=== PATIENT | female | born 2000 | race Caucasian/White ===

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

== ENCOUNTER 2019-01-02 05:43 | Inpatient (IN) ==
[2019-01-02] MEDS ORDERED: PENICILLIN G POTASSIUM 5 MILLIONUNT in DEXTROSE 5 % IN WATER 100 ML IV ONE ×2 (05:58)
[2019-01-02] MEDS ORDERED: OXYTOCIN/DEXTROSE 5%-WATER 30 UNITS/500 ML BAG IV ONE (05:58)
[2019-01-02] MEDS ORDERED: ONDANSETRON 4 MG TAB.RAPDIS PO PRN (05:58)
[2019-01-02] MEDS ORDERED: DEXTROSE 5%-LACTATED RINGERS 1,000 ML IV PRN (05:58)
[2019-01-02] MEDS ORDERED: RINGER'S SOLUTION,LACTATED 1,000 ML IV ONE (05:58)
[2019-01-02 06:52] LABS: Cocaine Ur Negative (NEGATIVE); Urine Barbiturate Negative (NEGATIVE); Urine Benzodiazepines Negative (NEGATIVE); Urine Opiates Negative (NEGATIVE); Urine PCP Negative (NEGATIVE); Urine THC Negative (NEGATIVE)
[2019-01-02 07:46] VITALS: BP 121/73
[2019-01-02] MEDS ORDERED: PENICILLIN G POTASSIUM 2.5 MILLIONUNT in DEXTROSE 5 % IN WATER 100 ML IV SCH ×2 (09:58)
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
== END 2019-01-02 10:20 | disposition home or self-care (01) | DRG 832 ==
LOC: OB 05:43
PROVIDERS: ADMIT Obstetrics & Gynecology; ATTEND Obstetrics & Gynecology
CPT/HCPCS: 59025; 80307

== ENCOUNTER 2019-01-02 18:07 | Inpatient (IN) ==
[2019-01-02] MEDS ORDERED: RINGER'S SOLUTION,LACTATED 1,000 ML IV PRN (18:20)
[2019-01-02] MEDS ORDERED: RINGER'S SOLUTION,LACTATED 1,000 ML IV ONE (18:20)
[2019-01-02] MEDS ORDERED: OXYTOCIN/DEXTROSE 5%-WATER 30 UNITS/500 ML BAG IV ONE (18:20)
[2019-01-02] MEDS ORDERED: ONDANSETRON 4 MG TAB.RAPDIS PO PRN (18:20)
[2019-01-02] MEDS ORDERED: PENICILLIN G POTASSIUM 5 MILLIONUNT in DEXTROSE 5 % IN WATER 100 ML IV ONE ×2 (18:30)
[2019-01-02] MEDS ORDERED: NALOXONE HCL 1 MG/1 ML SYRG IV PRN (19:16)
[2019-01-02] MEDS ORDERED: ONDANSETRON HCL/PF 2 MG/ML VIAL IV PRN (19:16)
[2019-01-02] MEDS ORDERED: LIDOCAINE HCL/EPINEPHRINE 20 ML VIAL IJ ONE (19:17)
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
[2019-01-02] MEDS ORDERED: BUPIVACAINE HCL/PF 30 ML VIAL EP SCH (19:30)
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
--- NOTE | 2019-01-02 19:45 | ANES ---
Anesthesia Procedure Note Procedure Note: ANESTHESIA PROCEDURE NOTE Date of Procedure: 01/02/2019. Time of procedure: 1924. Performed by: Flo Ramirez CRNA Textile Finisher: None. Preprocedure diagnosis: Active labor. Post procedure diagnosis: Same. Procedure: Insertion of labor epidural. Indications: The patient is a 18 -year-old female in active labor requesting labor epidural for pain management. Findings: See below. Details of the procedure: The patient was placed in a sitting position. DuraPrep as well as Betadine swabs X3 was applied to the patient's back. Patient was then draped in a sterile fashion. Lidocaine 1% was infiltrated to the skin and subcutaneous tissues at the level of the L3-4 interspace. The epidural space was identified using a 18-gauge Tuohy needle with [id number] technique. Epidural catheter was inserted to a depth of 12 centimeters at skin. Negative test dose was elicited using 3 mL of 1.5% preservative-free lidocaine plus epinephrine 1 200,000. The epidural catheter was then taped and secured in place. Fluids: N/A. Specimen: N/A. Post procedure condition: The patient tolerated the procedure well. No complications were noted. Thank you for this consultation. Flo Ramirez CRNA
--- NOTE | 2019-01-02 19:46 | ANES ---
Post Anesthesia Assessment - Vital Signs Vitals: Last Vital Signs Temp 36.5 C 01/02/19 19:27 Pulse 93 01/02/19 19:41 Resp 18 01/02/19 19:41 BP 91/52 01/02/19 19:41 Pulse Ox 97 01/02/19 19:41 Airway Patency: Normal - Mental Status Level Of Consciousness: Awake - N/V Assessment Nausea/Vomiting Presence: None Dehydration:: No
[2019-01-02] MEDS ORDERED: BUPIVACAINE HCL/0.9 % NACL/PF 250 ML EP PRN (20:00)
[2019-01-02] MEDS ORDERED: PENICILLIN G POTASSIUM 2.5 MILLIONUNT in DEXTROSE 5 % IN WATER 100 ML IV SCH ×2 (22:30)
--- NOTE | 2019-01-03 00:05 | OR ---
Operative Report - Dictated Report Narrative: Spontaneous vaginal delivery of vigorously crying viable male at 2350 on 01/02/2019 with Apgars 9 and 10, weighing 3052 g and SERGEY position. Cord clamping delayed approximately 1 minute Placenta delivered complete, intact, with three vessel cord Estimated blood loss: less than 50 ml Anesthesia: epidural Lacerations: None History for MU History for MU Definition: * The number of deliveries resulting in a live the patient experienced prior to current hospitalization * The previous delivery of live twins or any live multiple gestation is considered one live event. *If primagravida or nulliparous is documented select zero for the number of previous live births. Live Events: Live Events: 1
[2019-01-03] MEDS ORDERED: BISACODYL 10 MG SUPP.RECT RC PRN (00:07)
[2019-01-03] MEDS ORDERED: GLYCERIN/WITCH HAZEL LEAF 40 APPL BOX TP PRN (00:07)
[2019-01-03] MEDS ORDERED: IBUPROFEN 800 MG TABLET PO PRN (00:07)
[2019-01-03] MEDS ORDERED: SENNOSIDES 8.6 MG TABLET PO PRN (00:07)
[2019-01-03] MEDS ORDERED: BENZOCAINE/MENTHOL 81 SPRAY CAN TP PRN (00:07)
[2019-01-03] MEDS ORDERED: ACETAMINOPHEN 325 MG TABLET PO PRN (00:07)
[2019-01-03] MEDS ORDERED: oxyCODONE HCL/ACETAMINOPHEN 1 TAB TABLET PO PRN (00:07)
[2019-01-03] MEDS ORDERED: HYDROCORTISONE 30 APPL TUBE TP PRN (00:07)
[2019-01-03] MEDS ORDERED: OXYTOCIN/DEXTROSE 5%-WATER 30 UNITS/500 ML BAG IV ONE (00:07)
--- NOTE | 2019-01-03 09:01 | PN ---
Subjective - Date and Time Seen Date: 01/03/19 Time: 09:01 Objective - Vitals Vitals: Last Vital Signs Temp 36.6 C 01/03/19 06:40 Pulse 102 H 01/03/19 06:40 Resp 20 01/03/19 06:40 BP 138/83 01/03/19 06:40 Pulse Ox 99 01/03/19 06:40 Patient denies complaints. Lochia wnl Abdomen - soft, nontender Uterus - firm, at umbilicus - 1 No calf tenderness Impression: day #1 - s/p spontaneous vaginal delivery. Plan: Continue routine care Assessment/Plan - Problems/Diagnosis (1) Elective induction of labor planned Problem: Acute (2) Group B streptococcal carriage complicating Problem: Acute (3) Asthma Problem: Chronic Qualifiers: (4) Anxiety and depression Problem: Inactive (5) Post traumatic stress disorder (PTSD) Problem: Inactive
[2019-01-03] MEDS: PRENATAL VITS96/IRON FUM/FOLIC 1 TAB TABLET PO SCH (10:01)
[2019-01-03] MEDS: DOCUSATE SODIUM 100 MG CAPSULE PO SCH ×2 (10:01→21:31)
--- NOTE | 2019-01-04 10:15 | PN ---
Subjective - Date and Time Seen Date: 01/04/19 Time: 10:14 Objective - Vitals Vitals: Last Vital Signs Temp 36.2 C 01/04/19 06:50 Pulse 75 01/04/19 06:50 Resp 20 01/04/19 06:50 BP 120/78 01/04/19 06:50 Pulse Ox 98 01/04/19 06:50 Patient denies complaints. Bottle feeding Lochia wnl Abdomen - soft, nontender Uterus - firm, at umbilicus - 2 No calf tenderness Impression: day #2 - s/p spontaneous vaginal delivery. GBS carrier- received 3 doses of IV penicillin. Plan: Routine discharge instructions. Metal Stud Framer okayed mother and baby to be discharged at 1400 today. Assessment/Plan - Problems/Diagnosis (1) Elective induction of labor planned Problem: Acute (2) Group B streptococcal carriage complicating Problem: Acute (3) Asthma Problem: Chronic Qualifiers: (4) Anxiety and depression Problem: Inactive (5) Post traumatic stress disorder (PTSD) Problem: Inactive
[2019-01-04 14:05] VITALS: BP 125/78
[2019-01-04] MEDS: PRENATAL VITS96/IRON FUM/FOLIC 1 TAB TABLET PO SCH (15:21)
[2019-01-04] MEDS: DOCUSATE SODIUM 100 MG CAPSULE PO SCH (15:21)
== END 2019-01-04 14:05 | disposition home or self-care (01) | DRG 806 ==
LOC: OB 18:07
PROVIDERS: ADMIT Obstetrics & Gynecology; ATTEND Obstetrics & Gynecology
CPT/HCPCS: 59025